=== PATIENT | female | born 1930 | race Caucasian/White ===

== ENCOUNTER → 2017-04-24 | Outpatient (CLI) | payer MEDICARE, BC ==
[~2017-04-24] MED LIST: CALCIUM1 CAP PO; DIGESTIVE ENZYM1 TAB PO; NORCO 325 MG-51 TAB PO; OMEGA-31 SGL PO; VITAMIN B COMPL1 T16 PO; VITAMIN B6100 MG PO; VITAMIN C500 MG PO; VITAMIN D 400400 IU PO; VITAMIN E100 I3 PO; [UNRECOGNIZED DRUG - OTHER]; [UNRECOGNIZED DRUG - REMARK] PO
== END ==
LOC: MC.RAD 10:34
DX: Z12.31 Encounter for screening mammogram for malignant neoplasm of breast (principal); Z90.12 Acquired absence of left breast and nipple
CPT/HCPCS: G0202

== ENCOUNTER 2017-06-07 14:45 | Outpatient (RCR) | payer MEDICARE, BC | END 2017-07-18 | LOC: MKS.ESL.PT | DX: M17.0 Bilateral primary osteoarthritis of knee (principal) | CPT/HCPCS: G8978-GP; G8979-GP; G8980-GP ==

== ENCOUNTER → 2017-12-28 | Outpatient (CLI) | payer MEDICARE, BC ==
[~2017-12-28] VITALS: Ht 160 cm; Wt 61.3 kg
[~2017-12-28] MED LIST changes: +CALCIUM 600/VIT1 CAP PO; +FISH OIL 1000MG1 CAP PO; +NATURAL MAGNES200 MG PO; +VITAMINC1000TA PO; +[UNRECOGNIZED DRUG - CODE] PO; +[UNRECOGNIZED DRUG - OTHER] PO
[2017-12-28 12:51] VITALS: BP 153/86; PULSE 66
[2017-12-28 14:05] VITALS: BP 162/73; PULSE 66
== END ==
LOC: COL.RAD 12:33
DX: K11.8 Other diseases of salivary glands (principal); R59.0 Localized enlarged lymph nodes; Z98.890 Other specified postprocedural states

== ENCOUNTER → 2018-08-16 | Outpatient (CLI) | payer MEDICARE, BC | LOC: MC.RAD 09:55 | DX: C85.90 Non-Hodgkin lymphoma, unspecified, unspecified site (principal); Z98.890 Other specified postprocedural states | CPT/HCPCS: G0279 ==

== ENCOUNTER 2018-11-28 09:30 | Outpatient (RCR) | payer MEDICARE, BC | END 2018-12-16 | disposition home or self-care (01) | LOC: MKS.ESL.PT | DX: S46.211D Strain of muscle, fascia and tendon of other parts of biceps, right arm, subsequent encounter (principal); M75.01 Adhesive capsulitis of right shoulder | CPT/HCPCS: G8984-GP; G8985-GP ==

== ENCOUNTER → 2019-02-21 | Outpatient (CLI) | payer MEDICARE, BC | LOC: COL.RAD 09:56 | DX: C83.91 Non-follicular (diffuse) lymphoma, unspecified, lymph nodes of head, face, and neck (principal); M46.92 Unspecified inflammatory spondylopathy, cervical region; I31.3 Pericardial effusion (noninflammatory); K80.20 Calculus of gallbladder without cholecystitis without obstruction; M41.86 Other forms of scoliosis, lumbar region; M46.96 Unspecified inflammatory spondylopathy, lumbar region; Z90.89 Acquired absence of other organs; Z90.12 Acquired absence of left breast and nipple | CPT/HCPCS: Q9967 ==

== ENCOUNTER → 2019-09-10 | Outpatient (CLI) | payer MEDICARE, BC | LOC: MC.RAD 13:30 | DX: Z12.31 Encounter for screening mammogram for malignant neoplasm of breast (principal) ==